=== PATIENT | female | born 1955 | race African-American/Black ===

== ENCOUNTER 2016-02-23 22:08 | Emergency (ER) | payer OTHER ==
[2016-02-23 22:27] VITALS: BP 138/90
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
== END 2016-02-23 22:50 | disposition home or self-care (01) ==
LOC: ED 22:08
DX: M79.1 Myalgia (principal)
CPT/HCPCS: 99283

== ENCOUNTER 2016-03-08 02:14 | Emergency (ER) | payer OTHER ==
[2016-03-08] MEDS ORDERED: IBUPROFEN 200 MG TABLET PO ONE (02:23)
--- NOTE | 2016-03-08 02:25 | ED Physician Documentation ---
General Adult - HISTORIAN Historian: patient, paramedics - HPI Stated Complaint: left hip and arm pain Chief Complaint: General Adult Additional Information: Fell a month ago and was seen in the ER. Also seen for various pains on 02/22. Now c/o of the pain left hip and arm. No new injury. Says she occasionally takes tylenol. Sleeps on the couch and hip pain makes it hard for her to get up in the morning. Doesn't have a bed. Would accept ibuprofen and then home. Her mother within the last few weeks. - ROS CONST: no problems - PAST HX Past History: other (schizophrenia) Allergies/Adverse Reactions: Allergies Allergy/AdvReac Type Severity Reaction Status Date / Time codeine Allergy Intermediate Hives Verified 03/08/16 02:24 Penicillins Allergy Intermediate Hives Verified 03/08/16 02:24 thioridazine HCl Allergy Verified 03/08/16 02:24 [From [facility]] Home Medications: Ambulatory Orders Medication Instructions Recorded Aspirin [Aspirin] 81 mg PO D 07/01/13 - SOCIAL HX Smoking History: non-smoker - FAMILY HX Family History: No (no significant history. ) - VITAL SIGNS Vital Signs: Vital Signs Temp Pulse Resp BP Pulse Ox 138/90 02/23/16 22:50 - REVIEWED ASSESSMENTS Nursing Assessment Reviewed: Yes Vitals Reviewed: Yes ED Results Lab/Radiology - Orders Orders: ED Orders Category Date Time Status Ibuprofen [Advil] Med 03/08/16 02:23 Once 600 mg PO NOW ONE General Adult Physical Exam - PHYSICAL EXAM GENERAL APPEARANCE: no distress EENT: eye inspection normal, ENT inspection normal NECK: normal inspection, supple RESPIRATORY: no resp distress, chest non-tender, breath sounds normal CVS: reg rate & rhythm, heart sounds normal, no murmur ABDOMEN: soft, normal bowel sounds, no distension, non-tender RECTAL: deferred BACK: normal inspection SKIN: warm/dry, normal color EXTREMITIES: normal range of motion (hips and knees, w/o discomfort) NEURO: CN's nml as tested, motor nml, sensation nml Discharge Clincal Impression: Left hip pain Referrals: Henry Adams MD [Primary Care Provider] - 2 Days Home Medications: Ambulatory Orders Aspirin [Aspirin] 81 mg PO D 07/01/13 Condition: Good Disposition: 01 HOME, SELF-CARE Decision to Admit: NO Decision Time: 02:09
[2016-03-08 02:40] VITALS: BP 140/68
== END 2016-03-08 02:38 | disposition home or self-care (01) ==
LOC: ED 02:14
DX: M25.552 Pain in left hip (principal)
CPT/HCPCS: 99282

== ENCOUNTER 2016-05-22 10:26 | Day surgery (SDC) | payer OTHER ==
[~2016-05-22 10:26] MED LIST: LACTATED RINGERS 1,000 ML IV.SOLN IV ONE; LIDOCAINE HCL/PF 2% 100 MG/5 ML VIAL IJ ONE; PROPOFOL 200 MG/20 ML VIAL IV ONE; SALINE FLUSH 10 ML DISP.SYRIN IVF ONE
--- NOTE | 2016-05-25 08:48 | GI Report ---
REFERRING PHYSICIAN: Dr. Henry Adams DIRECTOR OF SURGERY: Piter Garcia MD PROCEDURE MEDICATION: Propofol as per anesthesia. INDICATIONS: This is a 61-year-old who has had polyps in the past. She denies any change in bowel habits or tendency toward constipation or bleeding. She is on a number of psychotropic medications. She does have paranoid schizophrenia and hydrocephalus. A number of cancers in the family including breast, throat, and patient reportedly has had a polyp in the past. PROCEDURE PERFORMED: Colonoscopy. PROCEDURE: An Olympus video colonoscope was advanced to the rectum. She had a very atonic redundant colon and it took some maneuvering to finally reach the cecum. The appendiceal orifice and ileocecal valve looked normal. On slow withdrawal, the cecum, ascending colon, and transverse colon with a lot of redundancy but no obvious intraluminal lesions noted. The descending colon and sigmoid, again, redundancy. No obvious intraluminal lesions were noted. Retroflexion of the rectum was normal. Patient tolerated the procedure well. FINDINGS: A very atonic redundant colon and I did not see any polyps or tumors at present. RECOMMENDATIONS: 1. Would add Metamucil, Benefiber, or MiraLAX for the constipation. 2. Again, consider re-looking at her colon in 7 to 10 years, sooner if clinically indicated. cc: Dr. Henry MARINELLI
== END 2016-05-22 10:27 ==
LOC: OPSURG 10:26
PROVIDERS: ATTEND Internal Medicine Gastroenterology
DX: Z86.010 Personal history of colon polyps (principal)
CPT/HCPCS: J2001; J2704; J7120; 45378; S1016

== ENCOUNTER 2016-06-19 22:25 | Emergency (ER) | payer OTHER ==
[2016-06-19 22:36] VITALS: BP 130/73
[2016-06-19] MEDS: methylPREDNISolone SOD SUCC 125 MG/2 ML VIAL IM ONE (22:44)
[2016-06-19] MEDS: CLINDAMYCIN HCL 150 MG CAPSULE PO ONE (22:45)
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
== END 2016-06-19 23:30 | disposition home or self-care (01) ==
LOC: ED 22:25
DX: F43.29 Adjustment disorder with other symptoms (principal)
CPT/HCPCS: 99281; 99282

== ENCOUNTER 2016-08-16 15:48 | Outpatient (CLI) | payer OTHER ==
[2016-08-16 16:44] LABS: eGFR (African) > 60; eGFR (Non-African) > 60
== END 2016-08-16 15:50 ==
LOC: LAB 15:48
PROVIDERS: ATTEND Family Medicine
DX: I10 Essential (primary) hypertension (principal); R73.9 Hyperglycemia, unspecified
CPT/HCPCS: 36415; 80053; 83036

== ENCOUNTER 2016-08-16 19:14 | Emergency (ER) | payer OTHER ==
[2016-08-16 19:20] VITALS: BP 131/60
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
== END 2016-08-16 20:18 | disposition home or self-care (01) ==
LOC: ED 19:14
DX: F41.9 Anxiety disorder, unspecified (principal); I10 Essential (primary) hypertension; F20.9 Schizophrenia, unspecified
CPT/HCPCS: 99284

== ENCOUNTER 2016-10-31 23:01 | Emergency (ER) | payer OTHER ==
--- NOTE | 2016-10-31 23:21 | ED Physician Documentation ---
General Adult - HISTORIAN Historian: patient - HPI Stated Complaint: Headache and generalized pain Chief Complaint: General Adult Onset: days ago Timing: still present Severity: moderate Modifying Factors: nothing helps or makes it worse Context: no precipitating factor Quality: achy all over Further Comments: yes (Patient states that she has been hurting all over for some time, worse tonight. Always seems tob e worse this time of year,) - ROS CONST: no problems. denies: fever, chills CVS/RESP: none. denies: chest pain, shortness of breath, cough GI/: none. denies: abdominal pain, problems urinating - PAST HX Past History: other (chronic paranoid schizophrenia) Other History: other (HTN, Hydorcephalus) Surgeries/Procedures: hysterectomy, other (cataract, intracraniel shunt placement) Allergies/Adverse Reactions: Allergies Allergy/AdvReac Type Severity Reaction Status Date / Time codeine Allergy Intermediate Hives Verified 10/31/16 23:02 Penicillins Allergy Intermediate Hives Verified 10/31/16 23:02 thioridazine HCl Allergy Verified 10/31/16 23:02 [From [facility]] Home Medications: Ambulatory Orders Medication Instructions Recorded Aspirin [Aspirin] 81 mg PO D 07/01/13 Celecoxib [Celebrex] 100 mg PO DAILY #30 capsule 11/01/16 - SOCIAL HX Smoking History: non-smoker Alcohol Use: none Drug Use: none - FAMILY HX Family History: Yes (HTN, DM, laryngeal cancer, brest cancer) - VITAL SIGNS Vital Signs: Vital Signs Temp Pulse Resp BP Pulse Ox 88 16 140/88 98 10/31/16 23:01 10/31/16 23:01 10/31/16 23:01 10/31/16 23:01 - REVIEWED ASSESSMENTS Nursing Assessment Reviewed: Yes Vitals Reviewed: Yes General Adult Physical Exam - PHYSICAL EXAM GENERAL APPEARANCE: mild distress EENT: eye inspection normal, ENT inspection normal, pharynx normal, no signs of dehydration NECK: normal inspection, thyroid normal, supple. No: stiff neck RESPIRATORY: no resp distress, chest non-tender, breath sounds normal. No: wheezes, rales, rhonchi CVS: reg rate & rhythm, heart sounds normal, equal pulses, no murmur, no gallop ABDOMEN: soft, no organomegaly, normal bowel sounds, no abdominal bruit, no distension BACK: CVA tenderness (R), CVA tenderness (L) SKIN: warm/dry EXTREMITIES: non-tender, normal range of motion, no evidence of injury, no edema NEURO: oriented X3, CN's nml as tested, motor nml, sensation nml, mood/affect nml (agitated some, upset about her mothers that occured years ago) Discharge Clincal Impression: Myalgia Headache Qualifiers: Headache type: tension-type Headache chronicity pattern: episodic headache Intractability: not intractable Qualified Code(s): G44.219 - Episodic tension- type headache, not intractable Prescriptions: Celecoxib [Celebrex] 100 mg PO DAILY #30 capsule Referrals: Henry Adams MD [Primary Care Provider] - 2 Days Additional Instructions: Take Celebrex as ordered. If symptoms do not improved to see your primary care provider. Condition: Stable Disposition: 01 HOME, SELF-CARE Decision to Admit: NO Date of Decison to Admit: 10/31/16 Decision Time: 23:25
[2016-10-31 23:46] LABS: BASOPHILS % 0.6 (0.0-1.5); EOSINOPHILS % 2.5 % (0.0-6.8); MEAN CORPUSCULAR HEMOGLOBIN 27.2 pg (28.0-34.0); MEAN CORPUSCULAR VOLUME 82.5 fl (80.0-100.0); MONOCYTES % 6.9 % (0.0-11.0); NEUTROPHILS # 3.4 # k/uL (1.4-7.7)
[2016-10-31 23:55] LABS: eGFR (African) > 60; eGFR (Non-African) > 60
[2016-11-01 00:47] VITALS: BP 136/76
== END 2016-11-01 00:45 | disposition home or self-care (01) ==
LOC: ED 23:01
DX: M79.1 Myalgia (principal); G44.219 Episodic tension-type headache, not intractable
CPT/HCPCS: 80053; 85025; 99283

== ENCOUNTER 2016-12-01 21:12 | Emergency (ER) | payer OTHER ==
[2016-12-01 22:44] VITALS: BP 116/64
--- NOTE | 2016-12-01 23:43 | ED Physician Documentation ---
Psychological Disorders - HISTORIAN Historian: patient - HPI Stated Complaint: flashbacks Chief Complaint: Psychological Disorder Additional Information: Thinking a lot about parents, no suicidal or homicidal thoughts Onset: hours (10) Duration: sudden onset Severity: moderate Situational Problems: Yes Related To: other (someone brought up her parents today) - Associated Symptoms Symptoms: frustrated - ROS CONST: none NEURO/PSYCH: none EYES/ENT: none CVS/RESP: none GI/: denies: nausea, vomiting, abdominal pain MS/SKIN/LYMPH: denies: joint pain, leg swelling, rash, swollen glands, ankle swelling - PAST HX Psychiatric problems: schizophrenia DVT/PE Risk Factors: none Lung, Cardiac, DM: hypertension Surgical History: other (hysterectomy, brain shunt) Allergies/Adverse Reactions: Allergies Allergy/AdvReac Type Severity Reaction Status Date / Time codeine Allergy Intermediate Hives Verified 12/01/16 21:23 Penicillins Allergy Intermediate Hives Verified 12/01/16 21:23 thioridazine HCl Allergy Verified 12/01/16 21:23 [From [facility]] Home Medications: Ambulatory Orders Medication Instructions Recorded Aspirin [Aspirin] 81 mg PO D 07/01/13 - Social HX Smoking History: non-smoker Marital Status: single Drug Use: none - Family HX Family HX: mental illness - VITAL SIGNS Vital Signs: Vital Signs Temp Pulse Resp BP Pulse Ox 98.2 F 80 16 116/64 98 12/01/16 21:15 12/01/16 22:40 12/01/16 22:40 12/01/16 22:40 12/01/16 22:40 - REVIEWED ASSESSMENTS Nursing Assessment Reviewed: Yes Vitals Reviewed: Yes Progress - Results/Orders Results/Orders: none ordered - Progress Progress: pt. chooses no new meds and just wants to go home, calm Critical Care Note - Critical Care Note Total Time (mins): 0 ED Results Lab/Radiology - Lab Results Lab Results: none ordered - Radiology Radiology Impressions: none ordered Psych Physical Exam - Physical Exam General Appearance: alert, mild distress ENT: nml ENT inspection, pharynx nml Eyes: PERRL, EOM's intact Mental Status: hostile. No: suicidal ideation, depressed affect / mood Suicide Attempts: denies Orientation: nml x3 Cranial Nerves: CN's intact as tested Sensory, Motor: nml motor response, nml sensory response, nml reflexes, nml gait Neck/Back: normal inspection, thyroid normal, supple Respiratory: no resp distress, chest non-tender, breath sounds normal CVS: reg rate & rhythm, heart sounds normal, equal pulses, no murmur, no gallop , PMI nml, no JVD, no friction rub Abdomen: non-tender, no organomegaly, nml bowel sounds, no distention Skin: warm/dry, normal color Extremities: non-tender, normal range of motion, no evidence of injury, no edema Discharge Clincal Impression: Schizoaffective disorder Qualifiers: Schizoaffective disorder type: unspecified Qualified Code(s): F25.9 - Schizoaffective disorder, unspecified Referrals: Henry Adams MD [Primary Care Provider] - 2 Days Comments: Discharged home in stable and calm condition by taxi. Condition: Stable Disposition: 01 HOME, SELF-CARE Decision to Admit: NO Decision Time: 22:30
== END 2016-12-01 22:40 | disposition home or self-care (01) ==
LOC: ED 21:12
DX: F25.9 Schizoaffective disorder, unspecified (principal)
CPT/HCPCS: 99283

== ENCOUNTER 2016-12-05 19:26 | Emergency (ER) | payer OTHER ==
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
[2016-12-05 21:04] VITALS: BP 167/75
== END 2016-12-05 20:55 | disposition home or self-care (01) ==
LOC: ED 19:26
DX: F41.9 Anxiety disorder, unspecified (principal)
CPT/HCPCS: 99283

== ENCOUNTER 2017-01-20 16:24 | Emergency (ER) | payer OTHER ==
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
[2017-01-20 17:27] VITALS: BP 161/93
== END 2017-01-20 17:26 | disposition home or self-care (01) ==
LOC: ED 16:24
DX: F41.9 Anxiety disorder, unspecified (principal)
CPT/HCPCS: 99283